=== PATIENT | female | born 1960 | race Caucasian/White ===

== ENCOUNTER 2017-12-27 12:36 | Outpatient (CLI) | payer BC ==
--- NOTE | 2017-12-27 14:18 | Diagnostic Imaging Report ---
MEJIA RODRIGUEZ [facility] [address] [facility] [address] [address] Report Submission Date: December 27, 2017 1:57:12 PM CDT Patient Study Name: MERLYN LYON Date: December 27, 2017 1:32:00 PM CDT Modality Type: DX Gender: F Description: SHOULDER : 58 Institution: [facility] Physician: MEJIA RODRIGUEZ Examination: Plain film right shoulder History: PT STATES TWISTED SHOULDER WHILE GETTING OUT OF CAR X 2 WEEKS AGO, RIGHT SHOULDER PAIN (Hx Comparison exams: None provided Findings: 2 views of the right shoulder demonstrate normal cortical margins. No evidence for acute fracture or dislocation. Old posterior glenoid avulsion. Acromioclavicular joint degenerative changes. No soft tissue abnormality Impression: Acromioclavicular joint degenerative changes. No acute osseous process. Electronically signed on December 27, 2017 1:57:12 PM CDT by: Marcin RAND
== END 2017-12-27 12:38 ==
LOC: RAD 12:36
PROVIDERS: ATTEND Family Medicine
DX: M25.511 Pain in right shoulder (principal)
CPT/HCPCS: 73030

== ENCOUNTER 2018-05-26 15:28 | Outpatient (CLI) | payer BC, OTHER | END 2018-05-26 15:30 | LOC: RAD 15:28 | PROVIDERS: ATTEND Family Medicine | DX: M81.0 Age-related osteoporosis without current pathological fracture (principal) | CPT/HCPCS: 77080 ==

== ENCOUNTER 2018-06-02 10:55 | Outpatient (CLI) | payer BC ==
[2018-06-02 11:44] LABS: eGFR (Non-African) > 60
== END 2018-06-02 10:56 ==
LOC: LAB 10:55
PROVIDERS: ATTEND Family Medicine
DX: E11.9 Type 2 diabetes mellitus without complications (principal)
CPT/HCPCS: 36415; 80053; 80061; 83036

== ENCOUNTER 2018-11-23 08:32 | Outpatient (CLI) | payer OTHER ==
--- NOTE | 2018-11-23 09:51 | Diagnostic Imaging Report ---
HAI MORALES [facility] [address] [facility] [address] [address] Report Submission Date: Nov 23, 2018 9:43:12 AM CDT Patient Study Name: MERLYN LYON Date: Nov 23, 2018 8:59:26 AM CDT Modality Type: US Gender: F Description: US ABDOMEN LIMITED : 58 Institution: [facility] Physician: HAI MORALES EXAMINATION: US ABDOMEN LIMITED HISTORY: RUQ pain with vomiting COMPARISON: None FINDINGS: The liver is diffusely hyperechoic relative to the right kidney and demonstrates increased attenuation of the ultrasound beam posteriorly, which can be seen in the setting of diffuse hepatic steatosis. No discrete hepatic mass or intrahepatic biliary dilatation is seen. No gallstones or pericholecystic fluid is seen. The gallbladder wall is normal in thickness, measuring 2 mm. The common bile duct is nondilated, measuring 4 mm. Limited views of the right kidney reveal no evidence of nephrolithiasis or hydronephrosis. The visible pancreas is normal in echogenicity. IMPRESSION: 1. Hyperechoic liver relative to the right kidney, which can be seen in the setting of diffuse hepatic steatosis. No discrete hepatic lesion or intrahepatic biliary ductal dilatation. 2. No evidence of cholelithiasis or cholecystitis. Electronically signed on Nov 23, 2018 9:43:12 AM CDT by: Rosas RAND
== END 2018-11-23 08:37 | disposition home or self-care (01) ==
LOC: RAD 08:32
PROVIDERS: ATTEND Family Medicine
DX: R93.2 Abnormal findings on diagnostic imaging of liver and biliary tract (principal); R10.9 Unspecified abdominal pain
CPT/HCPCS: 76705

== ENCOUNTER 2018-11-24 08:44 | Outpatient (CLI) | payer OTHER ==
[2018-11-24 09:34] LABS: eGFR (Non-African) > 60
== END 2018-11-24 10:43 ==
LOC: LAB 08:44
PROVIDERS: ATTEND Family Medicine
DX: E11.9 Type 2 diabetes mellitus without complications (principal); R10.9 Unspecified abdominal pain; R11.10 Vomiting, unspecified
CPT/HCPCS: 36415; 80053; 80061; 82043; 83036; 83690

== ENCOUNTER 2019-06-20 07:33 | Day surgery (SDC) | payer OTHER ==
[2018-12-19 22:12] VITALS: BP 138/64
[2019-06-20] MEDS ORDERED: LIDOCAINE HCL 2% PF 100MG/5ML VIAL IJ ONE ×3 (08:48)
[2019-06-20] MEDS ORDERED: LACTATED RINGERS 1,000 ML IV.SOLN IV ONE ×3 (08:48)
[2019-06-20] MEDS ORDERED: PROPOFOL 200 MG/20 ML VIAL IV ONE ×3 (08:48)
--- NOTE | 2019-06-22 14:27 | GI Report ---
DATE OF PROCEDURE: 06/20/2019 REFERRING PHYSICIAN: Dr. Du. PROCEDURE PERFORMED: Colonoscopy. SURGEON: Brianne Jerez M.D., F.A.C.P. INDICATION FOR PROCEDURE: 58-year-old woman comes for her first colonoscopy. She states she has difficulty passing stools she thinks after a fourth degree laceration with her last delivery. The patient sometimes goes a week without a bowel movement. She denies family history of colorectal cancer. She is diabetic and she is on insulin and oral agents. She is 53, and her weight is 155. She has had a and some breast surgery (lumpectomy). PROCEDURE MEDICATION: Propofol, as per Anesthesia. DESCRIPTION OF PROCEDURE: The Olympus video colonoscope was advanced into the rectum. There was no scar in the anal canal. The prep was fair. There still was some dark colored fluid throughout the whole colon. A very atonic redundant colon took some maneuvering and finally reached the cecum. The append and terminal ileum were inspected and were normal. On slow withdrawal, the cecum, ascending colon: No obvious intraluminal lesions were noted. Descending colon and sigmoid: Again, a lot of redundancy but no obvious intraluminal lesions were noted. I did not observe diverticula. Retroflexion in the rectum shows hemorrhoid. The patient tolerated the procedure well. FINDINGS: Extremely atonic redundant colon but no obstruction. RECOMMENDATIONS: 1. Would add MiraLAX to her program, half scoop to 1 scoop daily. 2. Increase fiber in diabetic diet with more fruits, vegetables, particularly using whole grain rather than white flour. 3. If she is still having difficulty, low dose Linzess might be a consideration, like 72 mcg Thursday, Thursday, Thursday. 4. She is to follow up with Dr. Du. 5. Consider relook at her colon again in 10 years, sooner if clinically indicated. BRIANNE JEREZ M.D., F.A.C.P. VALENTÍN/caty Job#: [id number] Cc: Dr. Ana Laura RAND
== END 2019-06-20 09:16 ==
LOC: OPSURG 07:33
PROVIDERS: ATTEND Internal Medicine Gastroenterology
DX: K59.09 Other constipation (principal); K63.89 Other specified diseases of intestine; K57.30 Diverticulosis of large intestine without perforation or abscess without bleeding
CPT/HCPCS: 45378; J2001; J2704; J7120